=== PATIENT | male | born 1955 | race Caucasian/White ===

== ENCOUNTER 2022-04-23 21:38 | Emergency (ER) | payer MEDICARE ==
[2022-04-23] MEDS ORDERED: Sodium Chloride 0.9% 10 ML Syringe FLUSH PRN (21:48)
[2022-04-23] MEDS ORDERED: Ondansetron 4 MG Tab.DIS ONE (22:00)
[2022-04-23] MEDS ORDERED: Ondansetron 4 MG Tab.DIS PO ONE (22:05)
[2022-04-23] MEDS ORDERED: Ondansetron 4 MG/2 ML SDV IVPUSH ONE (22:05)
[2022-04-23] MEDS ORDERED: Sodium Chloride 0.9% 1,000 ML IV SCH (22:15)
[2022-04-23 22:23] LABS: TROPONIN I HIGH SENSITIVITY 9.5 pg/ml (<=60.4)
[2022-04-23] MEDS ORDERED: Potassium Phosphates 3 mMole/ML 15 ML SDV IV STA (22:26)
[2022-04-23] MEDS ORDERED: Potassium Phosphates 15 MMOLE in Sodium Chloride 0.9% 250 ML IV ONE (22:45)
== END 2022-04-24 05:00 | disposition home or self-care (01) ==
LOC: LB.ED 21:38
DX: K52.9 Noninfective gastroenteritis and colitis, unspecified (principal); I10 Essential (primary) hypertension; Z79.899 Other long term (current) drug therapy
CPT/HCPCS: 36415; 80048; 83690; 83735; 84100; 84484; 85027; 93005; 93010; 96361; 96365; 96368; 96375; 99283; 99284-25; A0425; A0429; J2405; J3475; J3490; J7030; J7050; Q0162